=== PATIENT | male | born 1950 | race Caucasian/White ===

== ENCOUNTER 2017-06-12 09:05 | Inpatient (IN) | payer MEDICARE, OTHER ==
[~2017-06-12] VITALS: Ht 175.3 cm; Wt 117.9 kg
[~2017-06-12 09:05] MED LIST: ASPIRIN EC81 MG PO; NAPROXEN500 MG PO
[2017-06-12] MEDS ORDERED: AMLODIPINE BESYL5 MG PO (09:23)
[2017-06-12] MEDS ORDERED: PANTOPRAZOLE SO40 MG PO (09:23)
[2017-06-12] MEDS ORDERED: ATORVASTATIN CA40 MG PO (09:24)
[2017-06-12] MEDS ORDERED: CARVEDILOL12.5 MG PO (09:24)
[2017-06-12] MEDS ORDERED: CYCLOBENZAPRINE10 MG PO (09:26)
--- OUTSIDE RECORDS SUMMARY | 2017-06-12 09:45 | XMS | Clinical Summary ---
Demographics + + + | Address | [address] | | | [place] [address] | + + + | Home Phone | | + + + | Preferred Language | Unknown | + + + | Marital Status | | + + + | Buddhist Affiliation | Unknown | + + + | Race | White | + + + | Ethnic Group | Not or | + + + Author + + + | Author | [facility] | + + + | Organization | [facility] | + + + | Address | Unknown | + + + | Phone | Unavailable | + + + Support + + + + + | Name | Relationship | Address | Phone | + + + + + | Bob Calzada | ECON | [address] | | | | | [place] | | | | | [phone] | | + + + + + Care Team Providers + +------+ + | Care Lubrication Supervisor Name | Role | Phone | + +------+ + PP | Unavailable | + +------+ + Source Comments RAJESH is fully live on both EpicCare Ambulatory and EpicCare InPatient[facility] Allergies + + + + + + | Active Allergy | Reactions | Severity | Noted | Comments | | | | | Date | | + + + + + + | Amoxicillin | Nausea and Vomiting | | 08/03/19 | N/V and diarrhea | | | | | 15 | | + + + + + + | Sulfacetamide Sodium | Nausea and Vomiting | | 08/03/19 | N/V and diarrhea | | | | | 15 | | + + + + + + Current Medications + + +-------+---------+------+------+-------+ | Prescription | Sig. | Disp. | Refills | Star | End | Statu | | | | | | t | Date | s | | | | | | Date | | | + + +-------+---------+------+------+-------+ | aspirin chewable | Take by mouth. | | | | | Activ | | 81 mg oral | | | | | | e | | tablet,chewable | | | | | | | + + +-------+---------+------+------+-------+ | atorvastatin 40 mg | Take by mouth. | | | | | Activ | | oral tablet | | | | | | e | + + +-------+---------+------+------+-------+ | carvedilol 12.5 mg | Take by mouth. | | | | | Activ | | oral tablet | | | | | | e | + + +-------+---------+------+------+-------+ | nitroglycerin 0.4 | Place under tongue. | | | | | Activ | | mg sublingual | | | | | | e | | tablet, sublingual | | | | | | | + + +-------+---------+------+------+-------+ | ALBUTEROL INHL | Inhale. | | | | | Activ | | | | | | | | e | + + +-------+---------+------+------+-------+ | ALBUTEROL | Inhale. | | | | | Activ | | (VENTOLIN INHL) | | | | | | e | + + +-------+---------+------+------+-------+ | triamcinolone | Apply to affected | | | | | Activ | | acetonide 0.5 % | area three times | | | | | e | | topical cream | daily. Apply thin | | | | | | | | film to affected | | | | | | | | areas. | | | | | | + + +-------+---------+------+------+-------+ | amLODIPine 5 mg | Take 5 mg by mouth | | | | | Activ | | oral tablet | once daily. | | | | | e | + + +-------+---------+------+------+-------+ | pantoprazole 40 mg | Take 40 mg by mouth | | | | | Activ | | oral tablet,delayed | once daily. | | | | | e | | release (DR/EC) | | | | | | | + + +-------+---------+------+------+-------+ | cyclobenzaprine 10 | Take 10 mg by mouth | | | | | Activ | | mg oral tablet | three times daily as | | | | | e | | | needed. Do not use | | | | | | | | longer than 2-3 | | | | | | | | weeks. | | | | | | + + +-------+---------+------+------+-------+ Active Problems Not on file Social History + + + +--------+------+ | Tobacco Use | Types | Packs/Day | Years | Date | | | | | Used | | + + + +--------+------+ | Current Every Day | Cigarettes | 0.4 | | | | Smoker | | | | | + + + +--------+------+ + +---+---+---+ | Smokeless Tobacco: | | | | | Never Used | | | | + +---+---+---+ + + +---------+ + | Alcohol Use | Drinks/We | oz/Week | Comments | | | ek | | | + + +---------+ + | Yes | | | Occasional | + + +---------+ + + + + | Sex Assigned at | Date Recorded | | | | + + + | Not on file | | + + + Last Filed Vital Signs + + + + | Vital Sign | Reading | Time Taken | + + + + | Blood Pressure | 135/92 | 08/02/2014 2:35 PM PDT | + + + + | Pulse | 59 | 08/02/2014 2:35 PM PDT | + + + + | Temperature | 36.2 C (97.2 F) | 08/02/2014 2:35 PM PDT | + + + + | Respiratory Rate | 18 | 08/02/2014 2:35 PM PDT | + + + + | Oxygen Saturation | 90% | 08/02/2014 2:35 PM PDT | + + + + | Inhaled Oxygen | - | - | | Concentration | | | + + + + | Weight | 107.5 kg (237 lb) | 08/02/2014 2:35 PM PDT | + + + + | Height | 174 cm (5' 8.5") | 08/02/2014 2:35 PM PDT | + + + + | Body Mass Index | 35.51 | 08/02/2014 2:35 PM PDT | + + + + Plan of Treatment + + + + + | Health Maintenance | Due Date | Last Done | Comments | + + + + + | INFLUENZA VACCINE | | | | | (FLU SHOT) | 7 | | | + + + + + Results Not on filefrom Last 3 Months
--- OUTSIDE RECORDS SUMMARY | 2017-06-12 09:45 | XMS | Clinical Summary ---
Demographics + + + | Address | [address] | | | [place] [address] | + + + | Home Phone | | + + + | Preferred Language | Unknown | + + + | Marital Status | | + + + | Yarsani Affiliation | Unknown | + + + | Race | White | + + + | Ethnic Group | Not or | + + + Author + + + | Author | [facility] | + + + | Organization | [facility] | + + + | Address | Unknown | + + + | Phone | Unavailable | + + + Support + + + + + | Name | Relationship | Address | Phone | + + + + + | Bob Calzada | ECON | [address] | | | | | [place] | | | | | [phone] | | + + + + + Care Team Providers + +------+ + | Care Casino Cashier Name | Role | Phone | + +------+ + PP | Unavailable | + +------+ + Source Comments RAJESH is fully live on both EpicCare Ambulatory and EpicCare InPatient.[facility] & [facility] Allergies + + + + + + [...]
--- OUTSIDE RECORDS SUMMARY | 2017-06-12 13:20 | XMS | Clinical Summary ---
Demographics + + + | Address | [address] | | | [place] [address] | + + + | Home Phone | | + + + | Preferred Language | Unknown | + + + | Marital Status | | + + + | Congregational Affiliation | Unknown | + + + | Race | White | + + + | Ethnic Group | Not or | + + + Author + + + | Author | [facility] | + + + | Organization | [facility] | + + + | Address | Unknown | + + + | Phone | Unavailable | + + + Support + + + + + | Name | Relationship | Address | Phone | + + + + + | Bob Calzada | ECON | [address] | | | | | [place] | | | | | [phone] | | + + + + + Care Team Providers + +------+ + | Care Materials Technician Name | Role | Phone | + +------+ + PP | Unavailable | + +------+ + Source Comments RAJESH is fully live on both EpicCare Ambulatory and EpicCare InPatient.[facility] & [facility] Allergies + + + + + + [...]
--- NOTE | 2017-06-12 14:30 | NUR ---
PT ASSESSMENT COMPLETED AND PT WAS ABLE TO TRANSFER SELF FROM STREACHER TO BED WITH STAFF WATCHING CORDS. PT FAMILY INSTRUCTED REGARDING DROPLET PERCAUTIONS. PT HAVING ISSUES WITH IV ACCESS. DOWN TO ONE IV SITE DR PARISH NOTIFIED AND NEW ORDERS RECEIVED.
--- NOTE | 2017-06-12 15:44 | NUR ---
SPOKE WITH DR PARISH REGARDING CURRENT ORDER FOR LR BOLUS, CLARIFIED THAT ORDER IS TO BE GIVEN STILL IN TO START FLUIDS. PTS IV NOW NOT PATENT. ATTEMPTED TO START A NEW IV WITH NO SUCCESS. PTS PRIMARY NURSE NOTIFIED, ORDER FOR PICC LINE. NURSING MEDIA INTERN TO CALL PICC NURSES FOR AVALIABILITY.
--- NOTE | 2017-06-12 16:00 | NUR ---
PT EATTING LUNCH AND DOING WELL WITH IT.
--- NOTE | 2017-06-12 18:00 | NUR ---
PICC INSERTION NOTE: ASKED BY DR. PARISH TO EVALUATE PATIENT FOR POTENTIAL PICC LINE PLACEMENT. AFTER INTERVIEWING THE PATIENT AND REVIEWING THE CHART, NO ABSOLUTE CONTRAINDICATIONS WERE IDENTIFIED. PATIENT WAS ABLE TO SIGN HIS OWN CONSENT AND ALL QUESTIONS WERE ANSWERED. DISCUSSED WITH PATIENT THE RISK AND BENEFITS OF HIM RECEIVING A PICC LINE. PT'S RIGHT ARM WAS EVALUATED FIRST USING THE SITE RITE U/S. PT'S BASILIC AND BRACHIAL VEINS WERE EASILY IDENTIFIED, AND THE BASILIC VEIN WAS NOTED TO BE GREATER THAN 8 FR PER SITE RITE U/S. PATIENT'S ARM WAS STERILLY DRAPED AND PREPPED ACCORDING TO CDC GUIDELINES FOR STERILE TECHNIQUE. PATIENT'S BASILIC VEIN WAS ACCESSED EASILY UPON THE FIRST ATTEMPT AND THE GUIDEWIRE ADVANCED EASILY INTO THE VEIN. THE INTRODUCER WAS ALSO ADVANCED UNDER THE SKIN AND INTO THE VEIN WITHOUT DIFFICULTY. PICC LINE WAS INSERTED USING THE Number 100 MAGNET FOR TIP DETECTION DURING INSERTION. PT TOLERATED ALL OF THIS PROCEDURE WELL, AND IN FACT SLEPT THROUGH MOST OF THE PROCEDURE. CHEST XRAY WAS TAKEN WITH 3 CM EXPOSED. AFTER REVIEWING INITIAL CHEST XRAY, THE PICC WAS ADVANCED AN ADDITIONAL 3 CM AND 0 CM WERE LEFT EXPOSED. SECOND CHEST XRAY TAKEN. APPROVAL REC'D FROM DR. PARISH AND DR. GENAO ON PLACEMENT AND VERIFICATION OF TIP OF PICC LINE AND OKAY TO USE. PATIENT ENCOUARGED TO ASK QUESTIONS REGARDING HIS PICC AND EDUCATION MATERIAL GIVEN TO PATIENT.
--- NOTE | 2017-06-12 18:21 | EKG ---
[facility] [address] [place] [address] Signed Normal sinus rhythm Normal ECG When compared with ECG of 12-JUN-2017 09:11, (Unconfirmed) No significant change was found Confirmed by BRANDON PARISH MD ([id number]) on 06/12/2017 6:21:28 PM Electronically Signed By: BRANDON PARISH MD 06/12/17 182 PATIENT NAME: ERUM BALL Electrocardiogram DATE OF : 54 PHYSICIAN: BRANDON PARISH MD REPORT #: [id number] REPORT IS CONFIDENTIAL AND NOT TO BE RELEASED WITHOUT AUTHORIZATION
--- NOTE | 2017-06-12 18:21 | EKG ---
[facility] [address] [place] [address] Signed Sinus tachycardia Otherwise normal ECG No previous ECGs available Confirmed by BRANDON PARISH MD ([id number]) on 06/12/2017 6:20:57 PM Electronically Signed By: BRANDON PARISH MD 06/12/17 182 PATIENT NAME: ERUM BALL HANY Electrocardiogram DATE OF : 54 PHYSICIAN: BRANDON PARISH MD REPORT #: [id number] REPORT IS CONFIDENTIAL AND NOT TO BE RELEASED WITHOUT AUTHORIZATION
--- NOTE | 2017-06-12 19:08 | NUR ---
PT COUGHING AND AND KNOWS THAT WE NEED A SPUTUM SAMPLE AND THAT WE NEED A URINE SAMPLE ALSO AT THIS TIME. CONTAINER FOR SPUTUM AT THE BEDSIDE. CLEAN URINAL IS ALSO AT THE BEDSIDE.
--- NOTE | 2017-06-12 19:30 | NUR ---
PT AWAKE IN BED, VISITOR IN TO SEE PT. REPORT RECEIVED FROM KAMERON MATTHEW.
--- NOTE | 2017-06-12 20:32 | NUR ---
IN TO DO PT ASSESSMENT AND MEDS. PT STATES PAIN IN BACK IS 6/10 BUT IMPROVING SOME. DENIES OTHER PAIN OR SOB. WEARING 3L O2, SPO2 92%, RR 25, COUGHS WITH DEEP BREATHING, LUNGS DIM WITH FEW COARSE SOUNDS HEARD AND SLIGHT EXP WHEEZE. ALERT AND ORIENTED, DENIES NEEDS. RT COMING IN TO [facility] [place].
--- NOTE | 2017-06-12 20:40 | NUR ---
PT STILL HAS NOT VOIDED, BLADDER SCAN SHOWS 650ML, DR PARISH AWARE. WILL CONTINUE TO MONITOR.
--- NOTE | 2017-06-12 22:11 | NUR ---
PT GIVEN 30MG IV TORADOL FOR 810 CHRONIC BACK PAIN.
--- NOTE | 2017-06-12 22:30 | NUR ---
PT UP TO STAND AT EDGE OF BED TO VOID 800 ML JOSE URINE. PT STATES HE IS LIGHTHEADED WHILE STANDING. AFTERWARDS SITS AT EDGE OF BED APPROX 20 MINUTES. HR REMAINS STEADY IN THE 70'S WHILE UP. HS CARE DONE. PT ACCIDENTALLY BUMPED HIS HAND ON BED RAIL AND DISLODGED HAND IV, FOUND ON FLOOR WITH TIP INTACT. POSITIONED BACK IN BED AND IS READY TO TRY TO SLEEP FOR THE NIGHT.
--- NOTE | 2017-06-12 23:30 | NUR ---
PT HAS BEEN WEARING HIS HOME CPAP FOR APPROX ONE HOUR, SLEEPING WITH OXYGEN SATURATIONS CONSISTENTLY 84-87%. O2 HAD STARTED AT 2L BLEED IN ON CPAP, TITRATED UP TO 6L WITH NO CHANGE SHOWN IN O2 SATURATIONS. RT IN TO ASSIST, DR PARISH CALLED AND ORDER GIVEN TO TRY PT ON HOSPITALS OWN CPAP MACHINE. PT PLACED ON HOSPITAL MACHINE SET AT PRESSURE 14 AND 40% FIO2, SATURATIONS QUICKLY COME UP TO 90%, PT MOSTLY REMAINS SLEEPING DURING ALL OF THIS. AWAKENS BRIEFLY WHEN RT TELLS HIM WE WILL SWITCH MASKS OVER THEN BACK TO SLEEP. RR 24, HR 68 SINUS RHYTHM.
--- NOTE | 2017-06-13 00:09 | NUR ---
O2 SATS NOW UP TO 95% ON THE HOSPITALS CPAP, ASSESSMENT DONE, PT VERY SLEEPY. LUNGS SOUNDING MORE CLEAR BUT STILL DIMINISHED, RR 18. RT HAS JUST DONE NEB TX.
--- NOTE | 2017-06-13 02:45 | NUR ---
PT CONTINUES TO SLEEP WEARING CPAP WITH SPO2 94%, RR 20 AND HR IN THE 60'S.
--- NOTE | 2017-06-13 03:31 | NUR ---
IN TO HAVE PT TRY TO VOID, STOOD AT BEDSIDE WITH 2PERSON STAND BY ASSIST, STATES HE IS LIGHTHEADED WITH GETTING UP AND WAS ABLE TO VOID 825 ML URINE. BACK TO BED, ASSESSMENT DONE, LUNGS SOUND MORE CLEAR AND LESS DIMINISHED. PT STATES HE HAS BEEN SLEEPING VERY WELL AND BACK PAIN IS GONE. CPAP PLACED BACK ON AND PT BACK TO SLEEP. PT FEELS COOL, WAS UNABLE TO GET ORAL OR AXILLARY TEMP TO READ, TEMPORAL THERMOMETER READS 96.5. WARM BLANKETS PLACED ON PT.
--- NOTE | 2017-06-13 06:00 | NUR ---
LAB IN TO DRAW
--- NOTE | 2017-06-13 06:10 | NUR ---
PT CONTINUES SLEEPING WEARING CPAP, VSS
--- NOTE | 2017-06-13 08:32 | NUR ---
PT AWAKE & ALERT, VS TAKEN, PT STOOD AT BEDSIDE WITH ASSIST TO VOID. PT VOIDED 800 MLS CLEAR YELLOW URINE AND SAMPLE SENT TO LAB PER DR. TOMAS. ASSESSMENT COMPLETED, PT STATES FEELING HUNGRY, BREAKFAST ORDERED. R.T. IN TO GIVE NEB TX.
--- NOTE | 2017-06-13 11:16 | NUR ---
PT TRANSFERRED TO [facility] CHAIR WITH MINIMAL ASSIST. STATES FEELING CONFORTABLE. PT ATE 100% OF BREAKFAST. DR. PARISH IN TO ASSESS PT THIS A.M. C/O OF LOW BACK PAIN "11/24" - MEDICATED WITH TORADOL 30 MG IV. PT REMAINS IN [facility] CHAIR VISITING WITH FAMILY MEMEBER. IVF DC'D PER DR. TOMAS.
--- NOTE | 2017-06-13 14:07 | NUR ---
PT REMAINS UP IN [facility] CHAIR VISITING WITH FAMILY MEMBERS. PT C/O OF LOW BACK PAIN, STATES "THE TORADOL DIDN'T WORK". DR. PARISH NOTIFIED AND ORDER RECEIVED FOR LIDOCANE PATCH.
--- NOTE | 2017-06-13 14:14 | NUR ---
vitals taken. updated patient on plan of care for me to take over nursing care. pt currently sitting up in chair. currently on 3 l per nc tolerating well. sating 93 percent hr wnl. lungs are clear and diminished. family at bed. lidocane patch to lower back. ice chips given to patient. no other complaint at this time.
--- NOTE | 2017-06-13 14:45 | NUR ---
Medications reconciled pharmacy record from [facility]
--- NOTE | 2017-06-13 16:14 | NUR ---
PATIENT SITTING IN CHAIR. STOOD TO VOID. PATIENT VOIDED 750MLS OF LIGHT JOSE COLOR URINE. PATIENT REPORTS FEELING MILDLY DIZZY WITH THE TRANSITION OF SITTING TO STANDING. PATIENT DID DO WELL ONCE STANDING AND WAS STEADY ON HIS FEET. PATIENTS BLOOD SUGAR TAKEN FOR 226. 6 UNITS OF INSULIN GIVEN. VITALS TAKEN. PATIENT REQUESTING DINNER EARLY. EVENING MEDICATION GIVEN WITH DINNER.
--- NOTE | 2017-06-13 17:57 | NUR ---
CONT TO BE ON 3 L PER NC. VITALS IMPROVING. PATIENT C/O DIZZINESS WHEN GOING TO STANDING POSITION. LIKES TO SIT AND REST BEFORE STANDING. VOIDING LARGE AMOUNTS WHEN USING URINAL. PICC LINE IS SL EXCEPT FOR ANTIBIOTICS. AFEBRILE. HOSPITAL CPAP AT NIGHT. POSS TRANSFER TO THE FLOOR TONIGHT OR IN THE AM.
--- NOTE | 2017-06-13 18:30 | NUR ---
PATIENT SITTING IN CHAIR. FAMILYI N ROOM. PATIENT LAUGHING AND JOKING. TOLERAITNG 3 L WELL. SATING 98 PERCENT. CONT TO HAVE NONPRODUCTIVE COUGH.
--- NOTE | 2017-06-13 20:20 | NUR ---
ASSESSMENT COMPLETED. PT IS ALERT/ORIENTED, SITTING UP IN CHAIR. PT REPORTS 4/10 PAIN IN BACK, HAS LIDOCAINE PATCH IN PLACE, PT WANTS TO WAIT UNTIL CLOSER TO BEDTIME TO TAKE FLEXERIL. LUNGS DIM, 3L O2 VIA NC IN PLACE. HR REGULAR. BOWEL TONES ACTIVE, DENIES NAUSEA. SKIN INTACT. PICC IV INFUSING AT TKO, VANCO INFUSION STARTED. NO SWELLING/REDNESS NOTED AT SITE. DISCUSSED WITH PT PLAN TO TRANSFER TO MED/SURG [facility]. PT DENIES FURTHER REQUESTS AT THIS TIME, WILL CONTINUE TO MONITOR.
--- NOTE | 2017-06-13 22:10 | NUR ---
REPORT GIVEN TO DESEAN MATTHEW, MAGALY.
--- NOTE | 2017-06-13 22:10 | NUR ---
REPORT GIVEN TO [facility]. MEDICATIONS FROM [facility] SENT WITH TIFF.
--- NOTE | 2017-06-13 22:20 | NUR ---
PT TRANSFERRED FROM ICU TO ROOM 109 ACCOMPANIED BY AND DAUGHTER. PT IS ALERT, ORIENTED, IN GOOD SPIRITS. DOES NOT WANT TO LAY DOWN YET. SITTING UP IN RECLINER, ORIENTED TO ROOM AND CALL LIGHT. TV REMOTE GIVEN AND FRESH ICE WATER. DENIES FURTHER NEEDS. ORDERS NOTED.
--- NOTE | 2017-06-13 22:52 | NUR ---
HELPED PT STAND TO USE THE URINAL. CHARTED OUTPUT. HELPED PT GET INTO BED. CALLED RT JUMANA TO HELP HIM PUT ON HIS BI-PAP.
--- NOTE | 2017-06-14 01:30 | NUR ---
PT IS RESTING QUIETLY WITH BIPAP ON, MAINTAINING OXIMETER 97%. CALL LIGHT IN EASY REACH.
--- NOTE | 2017-06-14 03:39 | NUR ---
WOKE BRIEFLY FOR ASSESSMENT, DENIES DISCOMFORT, GIVEN WARM BLANKET FOR COMFORT.
--- NOTE | 2017-06-14 07:56 | NUR ---
PATIENT DOING WELL. GOT HIM MORE TISSUES AND TOOK HIM TO THE BATHROOM. WHITEBOARD UPDATED
--- NOTE | 2017-06-14 08:22 | NUR ---
PATIENT SITTING UP IN BED READY FOR BREAKFAST. GOT HIM HIS DENTURES (AFTER CLEANING THEM) AND HIS ADHESIVE.
--- NOTE | 2017-06-14 10:32 | NUR ---
Vancomycin trough this morning is subtherapeutic at 9.3. Reload with 2g iv x 1, then 1500mg iv q 8hrs. Continue monitoring
--- NOTE | 2017-06-14 12:57 | NUR ---
ROUNDED WITH DR. PARISH. PLAN TO HOLD BACK ON BP MEDICATIONS. ORTHOS WHEN PATIENT BACK TO BED. PATIENT'S DAUTHER AT BEDSIDE.
--- NOTE | 2017-06-14 16:00 | NUR ---
ASSISTED PATIENT TO TAKE SHOWER, ORTHOS INSIGINIFICANT. PATIENT STATED " I FEEL SO MUCH BETTER AFTER A SHOWER". INCREASED WOB WITH ACTIVITY INCREASED NC TO 3L FOR EXERTION. VS STABLE.
--- NOTE | 2017-06-14 18:50 | NUR ---
PATIENT INCREASED ACTIVITY TODAY. UP TO RECLINER AND SHOWERED. PATIENT HAS SOB WITH EXERTION. LUNGS DIMINISHED THROUGHOUT. VS STABLE. ORTHOS NEGATIVE. PATIENT COMPLAINS OF DIZZINESS WITH ACTIVITY,BP MEDICATIONS NO ON HOLD.
--- NOTE | 2017-06-14 19:50 | NUR ---
RECIEVED REPORT FROM DAY SHIFT NURSE. PATIENT RESTING IN BED, FAMILY IN ROOM. PATIENT DENIES NEEDS. CALL LIGHT IN REACH.
--- NOTE | 2017-06-14 20:08 | NUR ---
PATIENT STATES HE TAKES 20MG OF FLEXERIL AT BEDTIME AND WOULD LIKE HIS NORMAL DOSE HE TAKES AT HOME. CALLED MD. WILL GIVE TORADOL WITH FLEXERIL BEFORE BED. I LET THE PATIENT AND HIS FAMILY KNOW. DENIES FURTHER NEEDS. CALL LIGHT IN REACH.
--- NOTE | 2017-06-14 21:28 | NUR ---
PATIENT RESTING IN BED. TOILETING OFFERED. C/O PAIN IN BACK. MEDICATION ADMINISTERED PER JUL. 2L O2 IN PLACE. PATIENT REQUESTING FOR RT TO ASSIST WITH CPAP SETUP. EXPIRATORY WHEEZES HEARD THROUGHOUT LUNGS. PATIENT STILL UNABLE TO BRING UP SECRETIONS WITH COUGHING. ENCOURAGED INCENTIVE SPIROMETER. HR REGULAR, ACITVE BS. PALPABLE PEDAL PULSES. FLUSHED PICC WITH 20CC NORMAL SALINE IN LUMEN THAT IS NOT KVO AND ADMINISTERED HEP FLUSH. PATIENT DENIES FURTHER NEEDS. CALL LIGHT IN REACH.
--- NOTE | 2017-06-14 23:09 | NUR ---
PATIENT SLEEPING IN BED. CPAP IN PLACE. CALL LIGHT IN REACH.
--- NOTE | 2017-06-15 00:14 | NUR ---
PATIENT SLEEPING IN BED. CPAP IN PLACE. CALL LIGHT IN REACH.
--- NOTE | 2017-06-15 01:13 | NUR ---
PATIENT SLEEPING. CPAP IN PLACE. CALL LIGHT IN REACH.
--- NOTE | 2017-06-15 02:00 | NUR ---
PATIENT UP TO BATHROOM WITH ASSIST. PATIENT REPORTS HAVING A LARGE FORMED BM. LUNGS COARSE IN LOWER SERRANO, CLEAR IN UPPER LOBES. PATIENT STILL HAS NON-PRODUCTIVE COUGH. CPAP PLACED BACK ON PATIENT. NO C/O PAIN AT THIS TIME. PATIENT DENIES FURTHER NEEDS. VANCO INFUSING. CALL LIGHT IN REACH.
--- NOTE | 2017-06-15 04:18 | NUR ---
PATIENT SLEEPING. CPAP IN PLACE. CALL LIGHT IN REACH.
--- NOTE | 2017-06-15 06:06 | NUR ---
RT IN WITH PATIENT DISCUSSING CPAP AND WHAT TO EXPECT. RT ANSWERING PATIENT'S QUESTIONS. PATIENT DENIES NEEDS FROM RN. NASAL CANNULA IN PLACE.
--- NOTE | 2017-06-15 06:32 | NUR ---
PATIENT WORE CPAP ALL NIGHT. HE IS CONCERNED THIS MORNING THAT HIS MASK IS NOT GETTING A GOOD SEAL DUE TO HIS NUNES. RT IN TO ANSWER QUESTIONS THIS AM. PATIENT NEEDS TO QUALIFY FOR HOME O2. WHILE AWAKE HE IS ON 2L VIA NASAL CANNULA WITH A SAT OF 93%.
--- NOTE | 2017-06-15 07:16 | NUR ---
PT SITTING UP IN RECLINER. IS ON 2L O2 VIA NC. RECIEVED REPORT IN ROOM FROM TIFF MASTERSON. PT DENIED NEEDS AT THIS TIME.
--- NOTE | 2017-06-15 08:12 | NUR ---
AM MEDICATIONS GIVEN. PT UP TO BATHROOM WITH STANDBY ASSIST, ON 2L O2 VIA NC.
--- NOTE | 2017-06-15 10:26 | NUR ---
DR. PARISH IN TO SEE PT. PT SITTING UP IN RECLINER. PT DENIED NEEDS AT THIS TIME.
--- NOTE | 2017-06-15 11:42 | NUR ---
Vancomycin trough level ordered for 06/16/17 at 0930
--- NOTE | 2017-06-15 12:10 | NUR ---
GAVE PT 2 UNITS NOVOLOG SSI SQ ORDERED. PT SITTING UP IN RECLINER. DENIED NEEDS.
--- NOTE | 2017-06-15 14:36 | NUR ---
PT SITTING UP IN RECLINER, FAMILY AT SIDE. PT DENIED PAIN AT THIS TIME. PROVIDED WITH BLANKET PER PT'S REQUEST. PERSONAL SUPPLIES AND CALL BUTTON IN REACH. PT REMAINS ON 2L O2 VIA NC.
--- NOTE | 2017-06-15 15:05 | NUR ---
CONSULT RECEIVED FOR DIABETIC DIET EDUCATION. PATIENT IS NEWLY DIAGNOSED. I ONLY HAD A FEW MINUTES TO CHAT THIS AFTERNOON DUE TO ANOTHER APPOINTMENT I HAD SCHEDULED. PATIENT'S AND DAUGHTER CAME IN AFTER A FEW MINUTES. HIS IS ALSO DIABETIC. PATIENT SEEMS TO ONLY EAT 2 MEALS DAILY AND LIKES HIS JUNK FOOD. I WILL HAVE TO SPEND MORE TIME DISCUSSING CARBOHYDRATES AND HOW THEY AFFECT BLOOD SUGAR WELL HEALTHY AND NOT SO HEALTHY CARBOHYDRATES. PLAN TO MEET WITH PATIENT TOMORROW.
--- NOTE | 2017-06-15 17:06 | NUR ---
CHECKED BG, 133. NO SSI INDICATED. PT SITTING UP IN BED, WATCHING TV. PT DENIED NEEDS.
--- NOTE | 2017-06-15 17:50 | NUR ---
BROUGHT PT HIS FOOD. PT DENIED NEEDS. IS IN BED, HOB ELEVATED.
--- NOTE | 2017-06-15 18:00 | NUR ---
PT REMAINS ON DROPLETTE PRECAUTIONS. PT HAS COARSE LUNGS SOUNDS, WITH A LOOSE, MOIST, NONPRODUCTIVE COUGH. REMAINS ON 2L O2 VIA NC. PT TOLERATING CARDIAC DIET WELL. PICC TO RUE HAS GOOD BLOOD RETURN, HAS IVF INFUSING AT 20 ML/HR. UP WITH 1 PERSON ASSIST. USES FWW, NO C/O DIZZINESS OR LIGHTHEADEDNESS.
--- NOTE | 2017-06-15 19:15 | NUR ---
RECIEVED REPORT FROM DAY SHIFT NURSE. PATIENT RESTING IN BED. O2 IN PLACE VIA NASAL CANNULA. PATIENT DENIES NEEDS. CALL LIGHT IN REACH.
--- NOTE | 2017-06-15 20:11 | NUR ---
RT IN TO SEE PATIENT. RT REPORTS PATIENT REFUSING TO WEAR CPAP TONIGHT BECAUSE HE WOULD LIKE TO GET A GOOD NIGHT SLEEP.
--- NOTE | 2017-06-15 20:30 | NUR ---
PATIENT USED URINAL AT BEDSIDE. URINE CLEAR YELLOW. EMPTIED URINAL. PATIENT BACK TO SEMI FOWLERS POSITION IN BED. LUNGS CLEAR-->DIMINISHED. COUGH IS BECOMING MORE PRODUCTIVE, PATIENT ABLE TO BRING UP SMALL AMOUNT OF THICK YELLOW/WHITE SECRETIONS. HR REGULAR. TRACE BILAT ANKLE EDEMA, NON-PITTING. PALPABLE PEDAL PULSES. HYPOACTIVE BS, MULTIPLE BMS TODAY. NO C/O PAIN AT THIS TIME. PATIENT DENIES FURTHER NEEDS. CALL LIGHT IN REACH.
--- NOTE | 2017-06-15 22:00 | NUR ---
PATIENT SLEEPING. NASAL CANNULA IN PLACE. CALL LIGHT IN REACH.
--- NOTE | 2017-06-16 00:26 | NUR ---
PATIENT SLEEPING. NASAL CANNULA IN PLACE. CALL LIGHT IN REACH.
--- NOTE | 2017-06-16 02:15 | NUR ---
PATIENT RESTING IN BED. NASAL CANNULA IN PLACE. NO C/O PAIN. ABX STARTED. NO CHANGE FROM PREVIOUS ASSESSMENT. PATIENT DENIES NEEDS. CALL LIGHT IN REACH.
--- NOTE | 2017-06-16 04:15 | NUR ---
PATIENT SLEEPING. NASAL CANNULA IN PLACE. CALL LIGHT IN REACH.
--- NOTE | 2017-06-16 05:55 | NUR ---
PATIENT SLEEPING. NASAL CANNULA IN PLACE. CALL LIGHT IN REACH.
--- NOTE | 2017-06-16 06:03 | NUR ---
PATIENT REFUSED TO WEAR CPAP LAST NIGHT BECAUSE HE IS CONCERNED THE MASK DOES NOT FIT HIS FACE DUE TO HIS NUNES. HE WORE 2L VIA NASAL CANNULA LAST NIGHT. SLEPT THE ENTIRE NIGHT.
--- NOTE | 2017-06-16 07:04 | NUR ---
RECIEVED BEDSIDE REPORT FROM TIFF MASTERSON. PT SITTING UP IN RECLINER. REMAINS ON 2L O2 VIA NC. HAS NS INFUSING AT 20 CC/HR INTO RUE PICC. PT DENIED NEEDS.
--- NOTE | 2017-06-16 08:04 | NUR ---
PT SITTING UPRIGHT IN BED, HOB AT 60 DEGREES. PT TOOK AM MEDICATIONS. AM ASSESSMENT COMPLETE. PT RATES PAIN TO LOW BACK /. LIDODERM PATCH APPLIED, PT DECLINED PRN ACETAMINOPHEN. DENIED NEED. REMAINS ON 2L O2 VIA NC.
--- NOTE | 2017-06-16 09:13 | NUR ---
PATIENT SALINE LOCKED TO WALK WITH PHYSICAL THERAPY AND RESPIRATORY THERAPY. RIGHT ARM PICC LINE FLUSHED WITH NORMAL SALINE AND HEPARINIZED.
--- NOTE | 2017-06-16 09:35 | NUR ---
PT HAD VANCO DUE AT 1000. PT TO DISCHARGE TO HOME. ASKED DR. FREY IF 1000 VANCOMYCIN WAS TO BE GIVEN, WHO STATED THAT IT WAS NOT TO BE GIVEN, AND THAT PT IS GOING TO START VANCOMYCIN.
--- NOTE | 2017-06-16 09:38 | NUR ---
VITALS AND I AND O DONE
[2017-06-16] MEDS ORDERED: METFORMIN HCL500 MG PO (09:49)
[2017-06-16] MEDS ORDERED: LEVAQUIN750 MG PO (09:51)
--- NOTE | 2017-06-16 09:59 | NUR ---
PATIENT IS GOING HOME TODAY. HIS IS NOT HERE YET THIS MORNING. JUST HAD A BRIEF VISIT THIS MORNING. I RECOMMENDED PATIENT COME IN FOR OUTPATIENT DIABETES EDUCATION WITH THE MACHINE PRESSER. I EXPLAINED THIS IS THE BEST OPPORTUNITY TO LEARN ABOUT DIABETES CARE AND ALSO LEARN MORE ABOUT FOOD. I PROVIDED HIM WITH THE BASIC BOOK "TYPE 2 DIABETES - WHAT I NEED TO KNOW," A COPY OF THE NCM'S LIST OF CARBOHYDRATE IN FOODS, AND A LIST OF LOW CARBOHYDRATE SNACKS. BASICALLY I ONLY HAD TIME TO REINFORCE WHAT FOODS CONTAIN CARBS AND THAT HIGHER FIBER CARBS ARE BETTER FOR DIABETES. WILL CHECK ON PATIENT'S INSURANCE COVERAGE AND HAVE MACHINE PRESSER CALL PATIENT TO ASSIST WITH SETTING UP AN APPOINTMENT IF PATIENT IS OK WITH THAT. DR. LIMON IS HIS PCP. ALSO REMINDED PATIENT THAT EATING AT REGULAR INTERVALS DURING THE DAY HELPS. SOMETIMES HE EATS BREAKFAST, BUT USUALLY EATS MORE OF A BRUNCH AND A DINNER MEAL LATER. DEFINITELY NEEDS REINFORCEMENT ON DIABETES FOOD CHOICES, LABEL READING, BLOOD SUGAR CHECKING, EXERCISE, ETC.
--- NOTE | 2017-06-16 11:00 | NUR ---
PT GETTING READY TO GO HOME.
--- NOTE | 2017-06-16 11:30 | NUR ---
GAVE PT DISCHARGE EDUCATION. TAUGHT PT HOW TO CHECK HIS BG WITH BG MACHINE THAT WAS PROVIED, AND PT RETURN DEMONSTRATED APROPRIATELY. ALSO PROVIDED PRINTED AND VERBAL EDUCATION ON TYPE 2 DM, ADULT, OXYGEN USE AT HOME, SLEEP APNEA, AND ON DIABETIC DIET. PT VERBALIZED UNDERSTANDING. PT'S AND DAUGHTER IN ROOM WITH PT AT TIME EDUCATION WAS GIVEN. FABIOLA, PHARMACIST WAS IN PROVIDING EDUCATION REGARDING DISCHARGE MEDICATIONS JUST PRIOR TO THIS RN PROVIDING EDUCATION. WALKER WAS DELIVERED BY [facility].
--- NOTE | 2017-06-16 11:35 | NUR ---
PICC REMOVED FROM RUE, WML. APPLIED 2 BY 2 GAUZE X 3, AND HELD PRESSURE AT INSERTION SITE FOR 10 MINUTES. NO BLEEDING FROM SITE NOTED.
--- NOTE | 2017-06-16 11:39 | NUR ---
FAXED CHART NOTES TO [facility], AFTER SPEAKING WITH THE PT, FOR O2 SET UP AND FOR A FRONT WHEELED WALKER TO BE DELIVERED HERE. CALLED AND SPOKE WITH KARIS AT [facility]. FAXED FACESHEET, ORDERS, RT [facility] QUALIFIER, H AND P, DC SUMMARY AND PT EVAL AND NOTES. RECIEVED FAX CONFIRMATION OF THIS. WAS INFORMED JUST NOW THAT THE FRONT WHEELED WALKER IS HERE.
== END 2017-06-16 12:00 | disposition home or self-care (01) | DRG 193 ==
LOC: ED 09:05 → CCU 12:04 → MS 12:04
PROVIDERS: ADMIT Internal Medicine
PROC: 02HV33Z Insertion of Infusion Device into Superior Vena Cava, Percutaneous Approach (ICD-10-PCS; principal; 2017-06-12 16:45)
DX: J09.X1 Influenza due to identified novel influenza A virus with pneumonia (principal); J96.01 Acute respiratory failure with hypoxia; J44.1 Chronic obstructive pulmonary disease with (acute) exacerbation; E83.42 Hypomagnesemia; G47.33 Obstructive sleep apnea (adult) (pediatric); K21.9 Gastro-esophageal reflux disease without esophagitis; I10 Essential (primary) hypertension; E11.65 Type 2 diabetes mellitus with hyperglycemia; E78.5 Hyperlipidemia, unspecified; Z79.84 Long term (current) use of oral hypoglycemic drugs; G89.29 Other chronic pain; M54.5 Low back pain; F17.210 Nicotine dependence, cigarettes, uncomplicated; Z88.0 Allergy status to penicillin
CPT/HCPCS: 36415; 51798; 71045; 80053; 80202; 82565; 82803; 83036; 83605; 83735; 83880; 84484; 84520; 85025; 87040; 87070; 87077; 87186; 87205; 87449; 87502; 87899; 93005; 93010; 94640; 94660; 94667; 94668; 94760; 94761; 97116; 97162; J0456; J0696; J1650; J1885; J2930; J3370; J3475; J7030; J7040; J7050; J7120